=== PATIENT | female | born 1990 | race African-American/Black ===

== ENCOUNTER 2018-10-21 13:29 | Observation (INO) | payer SELFPAY ==
[2018-10-21 14:09] LABS: #Basophils 0.1 thou/uL (0.0-0.2); #Eosinphils 0.4 thou/uL (0.0-0.7); #Lymphocytes 1.9 thou/uL (1.20-3.40); #Monocytes 0.5 thou/uL (0.11-0.59); %Basophils 1.1 % (0.0-1.0); %Eosinophils 7.4 % (0.0-10.0); %Lymphocytes 39.8 % (21.0-51.0); %Monocytes 10.5 % (0.0-10.0); %Neutrophils 41.2 % (42.0-75.0); Hemoglobin 11.4 g/dL (12.0-16.0); Mean Corpuscular HGB CONC 32.9 g/dL (32.0-36.0); Mean Platelet Volume 7.9 fL (7.4-10.4); Platelet Count 272 thou/uL (130-400); RBC Distribution Width 14.5 % (11.5-14.5); Red Blood Cell (RBC) Count 4.08 mill/uL (4.20-5.40); White Blood Cell (WBC) Count 4.8 thou/uL (4.8-10.8)
[2018-10-21 14:17] LABS: BHCG - Serum Negative (NEGATIVE); Pregs Control Background? CLEAR/WHITE (CLR/WHITE); Pregs Control Bar Appear? YES (CONTROL BAR)
[2018-10-21 14:31] LABS: ALT (SGPT) 12 U/L (8-55); AST (SGOT) 13 U/L (5-34); Albumin 3.7 g/dL (3.5-5.0); Alkaline Phosphatase 45 U/L (40-150); Anion Gap 10 mmol/L (10-20); BUN (Urea Nitrogen) 14 mg/dL (7.0-18.7); Bilirubin, Total 0.2 mg/dL (0.2-1.2); Calc. Creatinine Clearance 0 mL/min (70-130); Calcium 8.8 mg/dL (7.8-10.44); Carbon Dioxide 23 mmol/L (22-29); Chloride 109 mmol/L (98-107); Estimated GFR-MDRD Greater than 90; Globulin 2.8 g/dL (2.4-3.5); Glucose 92 mg/dL (70-105); Lipase 221 U/L (8-78); Potassium 3.8 mmol/L (3.5-5.1); Protein, Total 6.5 g/dL (6.0-8.3); Sodium 138 mmol/L (136-145)
[2018-10-21] MEDS ORDERED: Morphine 2 MG/ML SYRINGE ONE (15:47)
[2018-10-21 15:56] LABS: Bilirubin Negative (Negative); Blood, Urine Negative (Negative); Clarity Clear (Clear); Glucose, Urine (Dipstick) Normal (Negative); Leukocyte Negative Leu/uL (Negative); Nitrite Negative (Negative); Protein, Urine (Dipstick) Negative (Neg-Trace); Urobilinogen Normal mg/dL (Less than 2)
[2018-10-21] MEDS ORDERED: Ondansetron PF 4 MG/2 ML Vial ONE (16:15)
[2018-10-21] MEDS ORDERED: ISOVUE-370 76%-LOCM 1 ML ONE (16:15)
--- NOTE | 2018-10-21 17:04 | CT ---
CT ABDOMEN AND PELVIS WITH CONTRAST: HISTORY: Abdominal pain and elevated lipase. COMPARISON: None. TECHNIQUE: Multiple contiguous axial images were obtained in a CT of the abdomen and pelvis with contrast. Mendez nal reformats were performed. FINDINGS: The liver, gallbladder, kidneys, adrenal glands, spleen, and pancreas are unremarkable. No free air, free fluid, or stranding changes are seen in the abdomen or pelvis. In particular, no free fluid or stranding changes surrounding the pancreas. There is a small amount of high density within the uterus, extending toward the vagina, which may rep resent a small amount of blood products within the endometrial canal. There is an exophytic lesion, measuring 1.6 cm in size, emanating from the uterus, which may represent a small exophytic uterine fi broid. The reproductive organs are otherwise unremarkable. The large and small bowel are unremarkab le. The appendix is unremarkable. No abdominal or pelvic lymphadenopathy is seen. The osseous structures, the visualized inferior thorax, and the abdominal wall soft tissues are unrem arkable. IMPRESSION: 1. No evidence of acute intraabdominal/pelvic abnormality. 2. Possible small uterine fibroid. POS: [facility]
[2018-10-21] MEDS ORDERED: Morphine 4 MG/ML VIAL SLOW IVP PRN (19:19)
[2018-10-21] MEDS ORDERED: Sodium Chloride 0.9% 1,000 ML IV SCH (19:30)
[2018-10-21 19:53] VITALS: BMI 43.8
[2018-10-21] MEDS ORDERED: Acetaminophen 650 MG Suppository PR PRN (19:55)
[2018-10-21] MEDS ORDERED: Ondansetron ODT 4 MG TAB PO PRN (19:55)
[2018-10-21] MEDS ORDERED: Ondansetron PF 4 MG/2 ML Vial IVP PRN (19:55)
[2018-10-21] MEDS ORDERED: Acetaminophen 325 MG TAB PO PRN (19:55)
[2018-10-21] MEDS ORDERED: Morphine 2 MG/ML SYRINGE SLOW IVP PRN (20:04)
[2018-10-21] MEDS: Sodium Chloride 0.9% 1,000 ML IV SCH (20:43)
--- NOTE | 2018-10-21 20:57 | HP ---
PRIMARY CARE DOCTOR: Not reported. CODE STATUS: Full code. TIME OF EVALUATION: 7:40 p.m. CHIEF COMPLAINT: Abdominal pain. HISTORY OF PRESENT ILLNESS: This is a 28 years old female patient, with no significant past medical history, came to the hospital after having severe, on and off bilaterally worsening abdominal pain that is diffuse, with no specific radiation, but worsen in the epigastric area; when on, it is 10/10. REVIEW OF SYSTEMS: CONSTITUTIONAL: No fever, chills, or generalized weakness. RESPIRATORY: No cough, sputum production, or shortness of breath. CARDIOVASCULAR: No chest pain or palpitation. GASTROINTESTINAL: No nausea, no vomiting, diarrhea. The patient has severe abdominal pain as described in HPI. PRESCRIPTION EYEGLASS MAKER: No dizziness, headache, or feeling lightheaded. GENITOURINARY: No burning on urination. EXTREMITIES: No leg swelling. All other systems were reviewed and negative except for the findings mentioned above. PAST MEDICAL HISTORY: As mentioned in the HPI. PAST SURGICAL HISTORY: The patient has no surgical history. PSYCH HISTORY: No psych history. SOCIAL HISTORY: The patient drinks alcohol socially, not everyday. No drugs. No smoking history. Lives at home. KNOWN ALLERGIES: To egg. No known drug allergies. REPORTED MEDICATIONS: None. PHYSICAL EXAMINATION: VITAL SIGNS: On presentation, blood pressure 125/85 with heart rate 68, respiratory rate was 18, temperature 98.4. Pain was 7/10. Oxygen saturation was 99% on room air. GENERAL APPEARANCE: The patient is alert, oriented, in no acute distress. HEENT: Eyes, normal conjunctivae. Moist oral mucosa. Anicteric. No JVD. RESPIRATORY: Bilateral air entry. No rales. No wheezes. Symmetric expansion. CARDIOVASCULAR: Normal rate, regular rhythm. No murmurs. No gallop. No edema. ABDOMEN: Soft. The patient has normal bowel sounds. The patient has diffuse abdominal tenderness. MUSCULOSKELETAL: Baseline range of motion and strength. SKIN: Warm, intact. No pallor. No rash. No redness. Capillary refill seems to be intact. NEURO: No evidence of any new focal weakness. Cranial nerves seems to be intact. PSYCH: The patient is in good mood. No anxiety. Optimal judgment. DIAGNOSTIC STUDIES: Abdomen and pelvis CT showed no evidence of acute intra-abdominal pelvic abnormalities, possible small uterine fibroid. LABORATORY DATA: White count 4.8, hemoglobin 9.4, MCV 85. Chemistry; sodium 138, potassium 3.8, chloride 109, carbon dioxide 23, anion gap 10, BUN 14, creatinine 0.77, GFR greater than 90, glucose 92, calcium 8.8, total bilirubin is 0.2. LFTs were negative. Lipase 221. test was negative. UA was negative. ASSESSMENT AND PLAN: The patient will be placed in the hospital with following medical problems; 1. Acute pancreatitis. The patient will receive IV fluids and pain medications. Clear liquid diet. We will monitor, likely will be able to go home in the morning. 2. Severe abdominal pain, we will treat accordingly. 3. Deep venous thrombosis prophylaxis. Job ID: [id number]
[2018-10-22] MEDS: Sodium Chloride 0.9% 1,000 ML IV SCH ×2 (01:38→08:26)
[2018-10-22 04:41] LABS: #Eosinphils 0.4 thou/uL (0.0-0.7); #Lymphocytes 2.7 thou/uL (1.20-3.40); #Monocytes 0.4 thou/uL (0.11-0.59); #Neutrophils 2.2 thou/uL (1.40-6.50); %Basophils 0.7 % (0.0-1.0); %Eosinophils 6.5 % (0.0-10.0); %Lymphocytes 47.2 % (21.0-51.0); %Monocytes 7.5 % (0.0-10.0); %Neutrophils 38.2 % (42.0-75.0); Hemoglobin 10.3 g/dL (12.0-16.0); Mean Corpuscular HGB CONC 32.4 g/dL (32.0-36.0); Mean Corpuscular Volume 86.5 fL (78.0-98.0); Mean Platelet Volume 8.1 fL (7.4-10.4); Platelet Count 234 thou/uL (130-400); RBC Distribution Width 14.7 % (11.5-14.5); Red Blood Cell (RBC) Count 3.68 mill/uL (4.20-5.40); White Blood Cell (WBC) Count 5.7 thou/uL (4.8-10.8)
[2018-10-22 04:58] LABS: Anion Gap 10 mmol/L (10-20); BUN (Urea Nitrogen) 11 mg/dL (7.0-18.7); Calc. Creatinine Clearance 196 mL/min (70-130); Calcium 7.9 mg/dL (7.8-10.44); Carbon Dioxide 21 mmol/L (22-29); Chloride 111 mmol/L (98-107); Estimated GFR-MDRD Greater than 90; Glucose 86 mg/dL (70-105); Potassium 3.5 mmol/L (3.5-5.1); Sodium 138 mmol/L (136-145)
[2018-10-22] MEDS ORDERED: Enoxaparin Sodium 40 MG/0.4 ML SYRINGE SC SCH (09:00)
[2018-10-22 09:03] LABS: ALT (SGPT) 9 U/L (8-55); AST (SGOT) 14 U/L (5-34); Albumin 3.1 g/dL (3.5-5.0); Alkaline Phosphatase 40 U/L (40-150); Bilirubin, Direct 0.2 mg/dL (0.1-0.3); Bilirubin, Total 0.3 mg/dL (0.2-1.2); Lipase 38 U/L (8-78); Protein, Total 5.4 g/dL (6.0-8.3)
[2018-10-22 12:17] VITALS: BP 152/88; TEMP 97.9
== END 2018-10-22 14:25 | disposition home or self-care (01) ==
LOC: ERS 13:29 → ONC 17:55 → ERS 18:56
PROVIDERS: ADMIT Internal Medicine; ATTEND Internal Medicine
DX: K85.90 Acute pancreatitis without necrosis or infection, unspecified (principal); Z91.012 Allergy to eggs
CPT/HCPCS: 36415; 74177; 80048; 80053; 80076; 81003; 83690; 84703; 85025; 96361; 96372; 96374; 96375; G0378; J1650; J2270; J2405; Q9966

== ENCOUNTER 2018-11-14 17:31 | Emergency (ER) | payer SELFPAY ==
[2018-11-14] MEDS ORDERED: Ondansetron ODT 4 MG TAB ONE (18:41)
[2018-11-14] MEDS ORDERED: Ketorolac Tromethamine 60 MG/2 ML VIAL ONE (18:41)
[2018-11-14 18:47] LABS: #Eosinphils 0.4 thou/uL (0.0-0.7); #Lymphocytes 1.3 thou/uL (1.20-3.40); #Monocytes 0.6 thou/uL (0.11-0.59); #Neutrophils 3.3 thou/uL (1.40-6.50); %Basophils 0.3 % (0.0-1.0); %Eosinophils 7.4 % (0.0-10.0); %Lymphocytes 22.9 % (21.0-51.0); %Neutrophils 58.4 % (42.0-75.0); Hemoglobin 11.1 g/dL (12.0-16.0); Mean Corpuscular HGB CONC 33.3 g/dL (32.0-36.0); Mean Corpuscular Hemoglobin 28.3 pg (27.0-31.0); Mean Corpuscular Volume 84.9 fL (78.0-98.0); Mean Platelet Volume 7.5 fL (7.4-10.4); Platelet Count 299 thou/uL (130-400); RBC Distribution Width 14.9 % (11.5-14.5); Red Blood Cell (RBC) Count 3.92 mill/uL (4.20-5.40); White Blood Cell (WBC) Count 5.7 thou/uL (4.8-10.8)
[2018-11-14 19:05] LABS: ALT (SGPT) 14 U/L (8-55); AST (SGOT) 15 U/L (5-34); Albumin 3.6 g/dL (3.5-5.0); Alkaline Phosphatase 47 U/L (40-150); Anion Gap 10 mmol/L (10-20); BUN (Urea Nitrogen) 13 mg/dL (7.0-18.7); Bilirubin, Total 0.3 mg/dL (0.2-1.2); Calc. Creatinine Clearance 0 mL/min (70-130); Calcium 8.4 mg/dL (7.8-10.44); Carbon Dioxide 23 mmol/L (22-29); Chloride 108 mmol/L (98-107); Estimated GFR-MDRD Greater than 90; Globulin 2.5 g/dL (2.4-3.5); Glucose 90 mg/dL (70-105); Lipase 63 U/L (8-78); Potassium 3.7 mmol/L (3.5-5.1); Protein, Total 6.1 g/dL (6.0-8.3); Sodium 137 mmol/L (136-145)
[2018-11-14 20:30] LABS: Bacteria/HPF None Seen HPF (None Seen); Bilirubin Negative (Negative); Blood, Urine 3+ (Negative); Clarity Clear (Clear); Glucose, Urine (Dipstick) Normal (Negative); Leukocyte Negative Leu/uL (Negative); Nitrite Negative (Negative); Protein, Urine (Dipstick) 30 mg/dL (Neg-Trace); RBC/HPF Greater than 50 HPF (0-3); Squamous Epithelial 0-3 HPF (0-3); WBC/HPF 0-3 HPF (0-3)
[2018-11-14 20:32] LABS: Pregnancy Test - Urine (BHCG) Negative (Negative); Pregu Control Background? CLEAR/WHITE (CLR/WHITE); Pregu Control Bar Appear? YES (CONTROL BAR); Specific Gravity 1.045 (1.002-1.036)
== END 2018-11-14 22:17 | disposition home or self-care (01) ==
LOC: ERS 17:31
DX: R10.9 Unspecified abdominal pain (principal); R11.0 Nausea; F17.210 Nicotine dependence, cigarettes, uncomplicated
CPT/HCPCS: 36415; 80053; 81003; 81015; 81025; 83690; 85025; 96372; 99284; J1885; Q0162

== ENCOUNTER 2018-12-15 05:55 | Emergency (ER) | payer SELFPAY ==
[2018-12-15 06:25] LABS: #Eosinphils 0.2 thou/uL (0.0-0.7); #Lymphocytes 1.7 thou/uL (1.20-3.40); #Monocytes 0.6 thou/uL (0.11-0.59); #Neutrophils 3.6 thou/uL (1.40-6.50); %Basophils 0.5 % (0.0-1.0); %Eosinophils 3.4 % (0.0-10.0); %Lymphocytes 27.4 % (21.0-51.0); %Monocytes 9.2 % (0.0-10.0); %Neutrophils 59.6 % (42.0-75.0); Hemoglobin 11.8 g/dL (12.0-16.0); Mean Corpuscular HGB CONC 32.6 g/dL (32.0-36.0); Mean Corpuscular Hemoglobin 27.9 pg (27.0-31.0); Mean Corpuscular Volume 85.8 fL (78.0-98.0); Platelet Count 295 thou/uL (130-400); RBC Distribution Width 14.2 % (11.5-14.5); Red Blood Cell (RBC) Count 4.22 mill/uL (4.20-5.40)
[2018-12-15 06:32] LABS: BHCG - Serum Negative (NEGATIVE); Pregs Control Background? CLEAR/WHITE (CLR/WHITE); Pregs Control Bar Appear? YES (CONTROL BAR)
[2018-12-15] MEDS ORDERED: Acetaminophen 500 MG TAB ONE (06:38)
[2018-12-15 06:46] LABS: ALT (SGPT) 11 U/L (8-55); AST (SGOT) 12 U/L (5-34); Albumin 3.7 g/dL (3.5-5.0); Alkaline Phosphatase 44 U/L (40-110); Anion Gap 10 mmol/L (10-20); BUN (Urea Nitrogen) 15 mg/dL (7.0-18.7); Bilirubin, Total 0.2 mg/dL (0.2-1.2); Calc. Creatinine Clearance 0 mL/min (70-130); Calcium 8.4 mg/dL (7.8-10.44); Carbon Dioxide 24 mmol/L (22-29); Chloride 107 mmol/L (98-107); Estimated GFR-MDRD Greater than 90; Globulin 2.8 g/dL (2.4-3.5); Glucose 101 mg/dL (70-105); Lipase 18 U/L (8-78); Potassium 3.5 mmol/L (3.5-5.1); Protein, Total 6.5 g/dL (6.0-8.3); Sodium 137 mmol/L (136-145)
--- NOTE | 2018-12-15 08:08 | RAD ---
2 VIEWS OF ABDOMEN AND UPRIGHT VIEW OF CHEST: Date: 12/15/18 HISTORY: Abdominal pain that began 1 day ago. FINDINGS: Supine and upright views of the abdomen and upright view of the chest shows nonspecific, nonobstructi ve bowel gas pattern. No free air or air fluid levels are seen on upright examination. The heart is normal in size. There is no evidence of consolidation, mass, or pleural effusion. IMPRESSION: Nonobstructive bowel gas pattern. POS: [facility]
== END 2018-12-15 06:58 | disposition home or self-care (01) ==
LOC: ERS 05:55
DX: K59.00 Constipation, unspecified (principal); F17.210 Nicotine dependence, cigarettes, uncomplicated
CPT/HCPCS: 36415; 74022; 80053; 83690; 84703; 85025

== ENCOUNTER 2019-03-16 13:29 | Emergency (ER) | payer SELFPAY ==
[2019-03-16 14:56] LABS: #Eosinphils 0.3 thou/uL (0.0-0.7); #Lymphocytes 1.8 thou/uL (1.20-3.40); #Monocytes 0.4 thou/uL (0.11-0.59); #Neutrophils 2.1 thou/uL (1.40-6.50); %Basophils 0.4 % (0.0-1.0); %Eosinophils 6.8 % (0.0-10.0); %Lymphocytes 37.9 % (21.0-51.0); %Monocytes 9.3 % (0.0-10.0); %Neutrophils 45.7 % (42.0-75.0); Hemoglobin 11.7 g/dL (12.0-16.0); Mean Corpuscular HGB CONC 32.7 g/dL (32.0-36.0); Mean Corpuscular Hemoglobin 26.8 pg (27.0-31.0); Mean Corpuscular Volume 81.9 fL (78.0-98.0); Mean Platelet Volume 7.6 fL (7.4-10.4); Platelet Count 335 thou/uL (130-400); RBC Distribution Width 14.6 % (11.5-14.5); Red Blood Cell (RBC) Count 4.35 mill/uL (4.20-5.40); White Blood Cell (WBC) Count 4.6 thou/uL (4.8-10.8)
[2019-03-16 15:45] LABS: BHCG - Serum Negative (NEGATIVE); Pregs Control Background? CLEAR/WHITE (CLR/WHITE); Pregs Control Bar Appear? YES (CONTROL BAR)
[2019-03-16 18:19] LABS: Bacteria/HPF None Seen HPF (None Seen); Bilirubin Negative (Negative); Blood, Urine 3+ (Negative); Clarity Turbid (Clear); Glucose, Urine (Dipstick) Normal (Negative); Leukocyte 250 Leu/uL (Negative); Nitrite Negative (Negative); Protein, Urine (Dipstick) 20 mg/dL (Neg-Trace); RBC/HPF Greater than 50 HPF (0-3); Squamous Epithelial 0-3 HPF (0-3); Urobilinogen Normal mg/dL (Less than 2)
[2019-03-16] MEDS ORDERED: Dexamethasone 10 MG/ML VIAL ONE (18:52)
[2019-03-16] MEDS ORDERED: Ondansetron ODT 4 MG TAB ONE (18:52)
[2019-03-16] MEDS ORDERED: Ketorolac Tromethamine 60 MG/2 ML VIAL ONE (18:52)
[2019-03-16] MEDS ORDERED: Acetaminophen 500 MG TAB ONE (18:53)
== END 2019-03-16 20:05 | disposition home or self-care (01) ==
LOC: ERS 13:29
DX: R10.30 Lower abdominal pain, unspecified (principal); F17.210 Nicotine dependence, cigarettes, uncomplicated
CPT/HCPCS: 36415; 81003; 81015; 84703; 85025; 96372; 99284; J1100; J1885; Q0162

== ENCOUNTER 2019-04-16 09:57 | Emergency (ER) | payer SELFPAY ==
[2019-04-16 11:17] LABS: #Basophils 0.1 thou/uL (0.0-0.2); #Eosinphils 0.2 thou/uL (0.0-0.7); #Lymphocytes 1.8 thou/uL (1.20-3.40); #Monocytes 0.6 thou/uL (0.11-0.59); #Neutrophils 3.6 thou/uL (1.40-6.50); %Basophils 1.1 % (0.0-1.0); %Eosinophils 3.5 % (0.0-10.0); %Lymphocytes 29.1 % (21.0-51.0); %Monocytes 9.4 % (0.0-10.0); %Neutrophils 56.9 % (42.0-75.0); Hemoglobin 13.3 g/dL (12.0-16.0); Mean Corpuscular HGB CONC 31.8 g/dL (32.0-36.0); Mean Corpuscular Hemoglobin 26.6 pg (27.0-31.0); Mean Corpuscular Volume 83.6 fL (78.0-98.0); Mean Platelet Volume 7.9 fL (7.4-10.4); Platelet Count 287 thou/uL (130-400); RBC Distribution Width 15.6 % (11.5-14.5); Red Blood Cell (RBC) Count 5.02 mill/uL (4.20-5.40); White Blood Cell (WBC) Count 6.3 thou/uL (4.8-10.8)
[2019-04-16 11:23] LABS: BHCG - Serum Negative (NEGATIVE); Pregs Control Background? CLEAR/WHITE (CLR/WHITE); Pregs Control Bar Appear? YES (CONTROL BAR)
[2019-04-16 11:32] LABS: ALT (SGPT) 10 U/L (8-55); AST (SGOT) 12 U/L (5-34); Albumin 3.6 g/dL (3.5-5.0); Alkaline Phosphatase 44 U/L (40-110); Anion Gap 10 mmol/L (10-20); BUN (Urea Nitrogen) 12 mg/dL (7.0-18.7); Bilirubin, Total 0.2 mg/dL (0.2-1.2); Calc. Creatinine Clearance 0 mL/min (70-130); Calcium 8.5 mg/dL (7.8-10.44); Carbon Dioxide 24 mmol/L (22-29); Chloride 106 mmol/L (98-107); Estimated GFR-MDRD Greater than 90; Globulin 2.7 g/dL (2.4-3.5); Glucose 117 mg/dL (70-105); Potassium 3.5 mmol/L (3.5-5.1); Protein, Total 6.3 g/dL (6.0-8.3); Sodium 136 mmol/L (136-145)
[2019-04-16] MEDS ORDERED: Ketorolac Tromethamine 30 MG/ML VIAL ONE (12:10)
[2019-04-16] MEDS ORDERED: Morphine 4 MG/ML VIAL ONE (12:10)
[2019-04-16] MEDS ORDERED: Ondansetron PF 4 MG/2 ML Vial ONE (12:10)
[2019-04-16] MEDS ORDERED: Acetaminophen 500 MG TAB ONE (12:39)
[2019-04-16 13:20] LABS: Bacteria/HPF None Seen HPF (None Seen); Bilirubin Negative (Negative); Blood, Urine 2+ (Negative); Clarity Clear (Clear); Glucose, Urine (Dipstick) Normal (Negative); Leukocyte Negative Leu/uL (Negative); Nitrite Negative (Negative); Protein, Urine (Dipstick) 70 mg/dL (Neg-Trace); RBC/HPF 21-50 HPF (0-3); Squamous Epithelial 0-3 HPF (0-3); Urobilinogen Normal mg/dL (Less than 2)
--- NOTE | 2019-04-16 13:23 | ULT ---
TRANSABDOMINAL PELVIC ULTRASOUND: INDICATION: Pelvic pain. TECHNIQUE: Azul scale, color Doppler, and spectral Doppler images were obtained of the pelvis via transabdominal approach. The patient declined a transvaginal examination. FINDINGS: There is limited detail of the uterus due to overlying bowel gas and poor acoustic window of the lowe r pelvis through the bladder. The bladder is not fully distended. The uterus measures approximately 4.2 x 4.9 x 7.2 cm. The endometrial stripe is not well seen. The right ovary measures 2.2 x 1.2 x 2.1 cm. The left ovary measures 1.3 x 2.6 x 1.9 cm. There is normal flow to the right and left ovar y. No free fluid is evident. IMPRESSION: 1. Technically limited examination. 2. No definite acute sonographic abnormality evident within limitation of the exam. 3. No free fluid. POS: [facility]
== END 2019-04-16 13:24 | disposition home or self-care (01) ==
LOC: ERS 09:57
DX: N94.6 Dysmenorrhea, unspecified (principal); R11.2 Nausea with vomiting, unspecified; F17.210 Nicotine dependence, cigarettes, uncomplicated
CPT/HCPCS: 36415; 76856; 80053; 81003; 81015; 84703; 85025; 93005; 93976; 96361; 96374; 96375; J1885; J2270; J2405

== ENCOUNTER 2020-05-29 19:41 | Emergency (ER) | payer SELFPAY ==
[2020-05-29 20:02] LABS: #Basophils 0.1 thou/uL (0.0-0.2); #Eosinphils 0.2 thou/uL (0.0-0.7); #Lymphocytes 2.7 thou/uL (1.20-3.40); #Monocytes 0.5 thou/uL (0.11-0.59); %Basophils 0.8 % (0.0-1.0); %Eosinophils 3.1 % (0.0-10.0); %Lymphocytes 35.9 % (21.0-51.0); %Neutrophils 53.2 % (42.0-75.0); Hemoglobin 10.9 g/dL (12.0-16.0); Mean Corpuscular HGB CONC 33.1 g/dL (32.0-36.0); Mean Corpuscular Hemoglobin 27.4 pg (27.0-31.0); Mean Corpuscular Volume 82.8 fL (78.0-98.0); Mean Platelet Volume 7.9 fL (7.4-10.4); Platelet Count 306 thou/uL (130-400); RBC Distribution Width 14.8 % (11.5-14.5); Red Blood Cell (RBC) Count 3.97 mill/uL (4.20-5.40); White Blood Cell (WBC) Count 7.5 thou/uL (4.8-10.8)
[2020-05-29] MEDS ORDERED: Acetaminophen 500 MG TAB ONE (20:21)
[2020-05-29 20:45] LABS: BHCG - Serum Negative (NEGATIVE); Pregs Control Background? CLEAR/WHITE (CLR/WHITE); Pregs Control Bar Appear? YES (CONTROL BAR)
== END 2020-05-29 21:25 | disposition home or self-care (01) ==
LOC: ERS 19:41
DX: N93.9 Abnormal uterine and vaginal bleeding, unspecified (principal); M72.2 Plantar fascial fibromatosis; D64.9 Anemia, unspecified; F17.210 Nicotine dependence, cigarettes, uncomplicated
CPT/HCPCS: 36415; 84703; 85025; 99281

== ENCOUNTER 2020-07-02 05:37 | Emergency (ER) | payer SELFPAY ==
[2020-07-02] MEDS ORDERED: Ketorolac Tromethamine 30 MG/ML VIAL ONE (06:18)
[2020-07-02] MEDS ORDERED: Ondansetron ODT 4 MG TAB ONE (06:19)
[2020-07-02] MEDS ORDERED: Acetaminophen 500 MG TAB ONE (07:14)
[2020-07-02 08:10] LABS: #Eosinphils 0.1 thou/uL (0.0-0.7); #Monocytes 0.6 thou/uL (0.11-0.59); #Neutrophils 4.9 thou/uL (1.40-6.50); %Basophils 0.3 % (0.0-1.0); %Eosinophils 0.9 % (0.0-10.0); %Monocytes 8.7 % (0.0-10.0); %Neutrophils 75.1 % (42.0-75.0); Hemoglobin 11.3 g/dL (12.0-16.0); Mean Corpuscular HGB CONC 32.3 g/dL (32.0-36.0); Mean Corpuscular Hemoglobin 27.1 pg (27.0-31.0); Mean Corpuscular Volume 83.9 fL (78.0-98.0); Mean Platelet Volume 7.9 fL (7.4-10.4); Platelet Count 302 thou/uL (130-400); RBC Distribution Width 14.4 % (11.5-14.5); Red Blood Cell (RBC) Count 4.18 mill/uL (4.20-5.40); White Blood Cell (WBC) Count 6.6 thou/uL (4.8-10.8)
[2020-07-02 08:19] LABS: Clarity Hazy (Clear)
[2020-07-02 08:23] LABS: Bilirubin Unable to Interpret (Negative); Blood, Urine Unable to Interpret (Negative); Glucose, Urine (Dipstick) Unable to Interpret mg/dL (Negative); Ketone, Urine Unable to Interpret mg/dL (Negative); Leukocyte Unable to Interpret (Negative); Nitrite Unable to Interpret (Negative); Protein, Urine (Dipstick) Unable to Interpret mg/dL (Neg-Trace); Specific Gravity, Urine 1.024 (1.002-1.036); Urobilinogen UNABLE TO INTERPRET mg/dL (Less than 2); pH, Urine 5.3 (5.0-9.0)
[2020-07-02 08:26] LABS: Pregnancy Test - Urine (BHCG) Negative (Negative); Pregu Control Background? CLEAR/WHITE (CLR/WHITE); Pregu Control Bar Appear? YES (CONTROL BAR); Specific Gravity 1.024 (1.002-1.036)
[2020-07-02 08:32] LABS: ALT (SGPT) 11 U/L (8-55); AST (SGOT) 12 U/L (5-34); Albumin 3.6 g/dL (3.5-5.0); Alkaline Phosphatase 53 U/L (40-110); Anion Gap 13 mmol/L (10-20); BUN (Urea Nitrogen) 13 mg/dL (7.0-18.7); Bilirubin, Total 0.2 mg/dL (0.2-1.2); Calc. Creatinine Clearance 0 mL/min (70-130); Calcium 8.9 mg/dL (7.8-10.44); Carbon Dioxide 24 mmol/L (22-29); Chloride 108 mmol/L (98-107); Glucose 100 mg/dL (70-105); Lipase 15 U/L (8-78); Potassium 3.8 mmol/L (3.5-5.1); Protein, Total 6.6 g/dL (6.0-8.3); Sodium 141 mmol/L (136-145)
[2020-07-02 08:34] LABS: Bacteria/HPF 1+ HPF (None Seen); RBC/HPF Greater than 50 HPF (0-3)
== END 2020-07-02 09:45 | disposition home or self-care (01) ==
LOC: ERS 05:37
DX: R10.30 Lower abdominal pain, unspecified (principal); N93.9 Abnormal uterine and vaginal bleeding, unspecified; R11.2 Nausea with vomiting, unspecified; R42 Dizziness and giddiness
CPT/HCPCS: 80053; 81001; 81025; 83690; 85025; 87086; 96372; 99284; J1885; Q0162

== ENCOUNTER 2020-07-15 09:06 | Emergency (ER) | payer SELFPAY | END 2020-07-15 09:44 | disposition home or self-care (01) | LOC: ERS 09:06 | DX: M72.2 Plantar fascial fibromatosis (principal) | CPT/HCPCS: 99281 ==

== ENCOUNTER 2020-08-11 13:36 | Emergency (ER) | payer SELFPAY ==
[2020-08-11] MEDS ORDERED: Ibuprofen 200 MG TAB ONE (15:30)
== END 2020-08-11 16:10 | disposition home or self-care (01) ==
LOC: ERS 13:36
DX: J02.9 Acute pharyngitis, unspecified (principal); J34.89 Other specified disorders of nose and nasal sinuses
CPT/HCPCS: 87081; 87430; 99283

== ENCOUNTER 2021-02-22 10:11 | Emergency (ER) | payer SELFPAY ==
[2021-02-22] MEDS ORDERED: Ketorolac Tromethamine 30 MG/ML VIAL ONE (10:32)
[2021-02-22] MEDS ORDERED: Dexamethasone 10 MG/ML VIAL ONE (10:32)
[2021-02-22] MEDS ORDERED: cefTRIAXone\\ROCEPHIN 1 GM VIAL ONE (10:32)
== END 2021-02-22 12:46 | disposition home or self-care (01) ==
LOC: ERS 10:11
DX: J36 Peritonsillar abscess (principal)
CPT/HCPCS: 96365; 96375; J0696; J1100; J1885

== ENCOUNTER 2021-04-15 12:12 | Emergency (ER) | payer SELFPAY | END 2021-04-15 14:02 | disposition home or self-care (01) | LOC: ERS 12:12 | DX: N94.6 Dysmenorrhea, unspecified (principal); R10.30 Lower abdominal pain, unspecified; E66.01 Morbid (severe) obesity due to excess calories; F17.210 Nicotine dependence, cigarettes, uncomplicated | CPT/HCPCS: 99283 ==

== ENCOUNTER 2023-08-22 14:12 | Inpatient (IN) | payer SELFPAY ==
[2023-08-22] MEDS ORDERED: Ondansetron PF 4 MG/2 ML Vial IVP PRN (15:24)
[2023-08-22] MEDS ORDERED: Ondansetron ODT 4 MG TAB PO PRN (15:24)
[2023-08-22] MEDS ORDERED: Calcium Carbonate 500 MG ChewTAB PO PRN (15:24)
[2023-08-22 15:34] LABS: Hematocrit 23.9 % (36.0-47.0); Hemoglobin 6.3 g/dL (12.0-16.0); Platelet Count 244 10x3/uL (130-400)
[2023-08-22 15:59] LABS: Troponin I Less than 0.010 ng/mL (< 0.028)
[2023-08-22 17:12] LABS: Iron 16 ug/dL (50-170); Iron Binding Capacity, Total 479 mcg/dL (265-497)
[2023-08-22] MEDS ORDERED: Nitroglycerin 0.4 MG TAB (25 Tab Bottle) SL PRN (17:19)
[2023-08-22 17:29] VITALS: BMI 36.6
[2023-08-22] MEDS: Multivit, Therapeutic 1 TAB PO SCH (20:57)
[2023-08-22] MEDS: Folic Acid 1 MG TAB PO SCH (20:57)
[2023-08-22] MEDS: Cyanocobalamin (Vitamin B-12) 1,000 MCG TAB PO SCH (20:57)
[2023-08-22] MEDS: Sodium Ferric Gluconate 250 MG in Sodium Chloride 0.9% 250 ML 250 ML IVPB SCH (20:58)
[2023-08-22] MEDS: Acetaminophen 325 MG TAB PO PRN (21:43)
[2023-08-23 05:07] LABS: #Basophils 0.04 10x3/uL (0.0-0.2); %Basophils 0.5 % (0.0-1.0); %Eosinophils 2.4 % (0.0-10.0); %Lymphocytes 31.7 % (21.0-51.0); %Monocytes 7.7 % (0.0-10.0); %Neutrophils 56.8 % (42.0-75.0); Hematocrit 27.4 % (36.0-47.0); Hemoglobin 7.5 g/dL (12.0-16.0); Mean Corpuscular HGB CONC 27.4 g/dL (32.0-36.0); Mean Corpuscular Hemoglobin 18.2 pg (27.0-31.0); Mean Corpuscular Volume 66.5 fL (78.0-98.0); Mean Platelet Volume 9.8 fL (7.4-10.4); Platelet Count 249 10x3/uL (130-400); RBC Distribution Width 27.1 % (11.5-14.5); Red Blood Cell (RBC) Count 4.12 mill/uL (4.20-5.40)
[2023-08-23 05:17] LABS: Anion Gap 8 mmol/L (10-20); BUN (Urea Nitrogen) 12 mg/dL (7.0-18.7); Calc. Creatinine Clearance 157 mL/min (70-130); Calcium 8.6 mg/dL (7.8-10.44); Carbon Dioxide 21 mmol/L (22-29); Chloride 110 mmol/L (98-107); Estimated GFR 95; Glucose 101 mg/dL (70-105); Potassium 3.9 mmol/L (3.5-5.1); Sodium 135 mmol/L (136-145)
[2023-08-23 12:15] VITALS: TEMP 98.2
[2023-08-23 15:31] VITALS: BP 161/86
== END 2023-08-23 19:20 | disposition home or self-care (01) | DRG 811 ==
LOC: 2NO 14:12
PROVIDERS: ADMIT Internal Medicine; ATTEND Internal Medicine
PROC: 30233N1 Transfusion of Nonautologous Red Blood Cells into Peripheral Vein, Percutaneous Approach (ICD-10-PCS; principal; 2023-08-22)
DX: D62 Acute posthemorrhagic anemia (principal); D66 Hereditary factor VIII deficiency; D68.9 Coagulation defect, unspecified; D68.59 Other primary thrombophilia; N92.0 Excessive and frequent menstruation with regular cycle; T45.515A Adverse effect of anticoagulants, initial encounter; Z86.718 Personal history of other venous thrombosis and embolism; Z91.012 Allergy to eggs; Z79.01 Long term (current) use of anticoagulants; Z86.711 Personal history of pulmonary embolism
CPT/HCPCS: 36415; 36430; 71046; 80048; 81241; 82728; 83540; 83550; 84484; 85025; 85046; 86850; 86900; 86901; 93970; 94760; J2916; J7050; P9016